=== PATIENT | male | born 1945 | race Caucasian/White ===

== ENCOUNTER 2022-01-19 07:28 | Day surgery (SDC) | payer OTHER ==
[~2022-01-19] VITALS: Ht 172.7 cm; Wt 83.5 kg
[2022-01-19] MEDS ORDERED: fentaNYL CITRATE/PF 100 MCG/2 ML AMP ONE (10:33)
[2022-01-19] MEDS: MIDAZOLAM HCL 5 MG/5 ML VIAL ONE ×2 (10:34→10:37)
[2022-01-19 16:50] VITALS: BP_SYST 143
== END 2022-01-19 11:25 | disposition home or self-care (01) ==
LOC: SDS 07:28 → SMU 07:29 → SDS 11:25
PROVIDERS: ATTEND Internal Medicine
DX: D64.9 Anemia, unspecified (principal); K29.50 Unspecified chronic gastritis without bleeding; K29.80 Duodenitis without bleeding; E78.00 Pure hypercholesterolemia, unspecified; I10 Essential (primary) hypertension; Z86.010 Personal history of colon polyps; Z87.891 Personal history of nicotine dependence; J43.9 Emphysema, unspecified; Z79.899 Other long term (current) drug therapy; Z20.822 Contact with and (suspected) exposure to COVID-19
CPT/HCPCS: 36415 ×2; 43239; 87081; 87426; 88305; 88312; 88313; G0378; J2250; J3010; U0003